=== PATIENT | female | born 1940 | race Hispanic/Latino ===

== ENCOUNTER 2017-11-19 13:12 | Emergency (ER) | payer MEDICARE ==
[2017-11-19 13:19] VITALS: TEMP 97.6
--- NOTE | 2017-11-19 13:33 | C.PDOC ---
History Of Present Illness 77 year old female presents to the ER with a complaint of dizziness since yesterday that she describes as a room spinning sensation. She describes an associated mild nausea and tinnitus in the left ear. Patient reports a Hx of diabetes, states her sugar at home was 182 but did not take any insulin. Denies vomiting, headache, change in vision, chest pain, palpitations, or SOB. Time Seen by Provider: 11/19/17 13:22 Chief Complaint (Nursing): Dizziness/Lightheaded History Per: Patient History/Exam Limitations: no limitations Onset/Duration Of Symptoms: Days Current Symptoms Are (Timing): Still Present Activity At Onset Of Symptoms: Other (Not known) Seizure Or Post-ictal Symptoms: None Fall Associated With With Symptoms: No Recent travel outside of the [place]: No - Symptoms Of CVA Associated Symptoms: denies: Impaired Speech, Seizure Activity, New Vision Deficit(Left), New Vision Deficit(Right), Decreased Ability To Walk, New Confusion Recent Head Trauma: No Past Medical History Reviewed: Historical Data, Nursing Documentation, Vital Signs Vital Signs: Last Vital Signs Temp 97.6 F 11/19/17 13:17 Pulse 69 11/19/17 14:39 Resp 19 11/19/17 14:39 BP 145/47 L 11/19/17 14:39 Pulse Ox 98 11/19/17 14:39 Family History: States: Unknown Family Hx - Social History Hx Alcohol Use: No Hx Substance Use: No Review Of Systems Eyes: Negative for: Vision Change ENT: Positive for: Other (tinnitus) Cardiovascular: Negative for: Chest Pain, Palpitations Respiratory: Negative for: Shortness of Breath Gastrointestinal: Positive for: Nausea. Negative for: Vomiting Neurological: Positive for: Dizziness. Negative for: Headache Physical Exam - Physical Exam Appears: Non-toxic Skin: Normal Color, Warm, Dry Head: Atraumatic, Normacephalic Eye(s): bilateral: Normal Inspection (No nystagmus), PERRL, EOMI Ear(s): Bilateral: Normal (No fluid) Nose: Normal Oral Mucosa: Moist Neck: Normal, Supple Lymphatic: Normal Exam, No Adenopathy Chest: Symmetrical, No Tenderness Cardiovascular: Rhythm Regular Respiratory: Normal Breath Sounds, No Rales, No Rhonchi, No Wheezing Gastrointestinal/Abdominal: Soft, No Tenderness Extremity: Normal ROM (x4) Pulses: Left Carotid: Normal, Right Carotid: Normal Neurological/Psych: Oriented x3, Normal Speech, Normal Cognition, Normal Cranial Nerves, Normal Motor, Normal Sensation, Normal Reflexes ED Course And Treatment - Laboratory Results Result Diagrams: 11/19/17 13:50 11/19/17 13:50 Lab Interpretation: No Acute Changes ECG: Interpreted By Me ECG Rhythm: Sinus Rhythm (with PACs) ECG Interpretation: No Acute Changes O2 Sat by Pulse Oximetry: 97 (Room air) Pulse Ox Interpretation: Normal - CT Scan/US CT head Other Rad Studies (CT/US): Read By Radiologist, Radiology Report Reviewed CT/US Interpretation: Accession No. : [id number]. Patient Name / ID : JEFFERY LAYNE / [id number]. Exam Date : 11/19/2017 14:05:22 ( Approved ). Study Comment : Sex / Age : F / 77Y. Creator : Radha Alan MD. Dictator : Radha Alan MD. Tie Worker : Yarn Twister : Radha Alan MD. Approver2 : Report Date : 11/19/2017 14:19:53. My Comment : . PROCEDURE: CT HEAD WITHOUT CONTRAST. HISTORY: R/O Bleed. COMPARISON: 03/13/2012. TECHNIQUE: Axial computed tomography images were obtained through the head/ brain without intravenous contrast. Radiation dose: Total exam DLP = 940.37 mGy-cm. This CT exam was performed using one or more of the following dose reduction techniques: Automated exposure control, adjustment of the mA and/or kV according to patient size, and/or use of iterative reconstruction technique. FINDINGS: HEMORRHAGE: No intracranial hemorrhage. BRAIN: There are mild chronic microangiopathic changes. There is no mass, mass effect or abnormal extra-axial fluid collection. There are coarse atherosclerotic calcifications in the cavernous carotid arteries. VENTRICLES: There is mild age-related global parenchymal volume loss with proportionate enlargement of the ventricles and cortical sulci. CALVARIUM: There is hyperostosis frontalis interna. Otherwise, the skull base and calvarium are normal. PARANASAL SINUSES: Predominantly clear. MASTOID AIR CELLS: Predominantly clear. OTHER FINDINGS: None. IMPRESSION: No acute intracranial abnormality. Mild chronic microangiopathic changes and mild age-related global parenchymal volume loss. Progress Note: CT head, blood work, EKG, and urinalysis ordered. Patient treated with Meclizine po. Reevaluation Time: 15:20 Reassessment Condition: Improved Disposition Counseled Patient/Family Regarding: Studies Performed, Diagnosis, Need For Followup, Rx Given - Disposition Referrals: [facility] at [facility] [Outside] Disposition: HOME/ ROUTINE Disposition Time: 15:21 Condition: IMPROVED Prescriptions: Meclizine [Meclizine*] 25 mg PO TID PRN #30 tab PRN Reason: Dizziness Instructions: Vertigo (a Type of Dizziness) (DC), Tinnitus (Ringing in the Ears ) Forms: [employer] ([place]) - Clinical Impression Clinical Impression: Vertigo, Tinnitus of left ear - Scribe Statement The provider has reviewed the documentation as recorded by the Scribangie Lawson All medical record entries made by the Soyibangie were at my direction and personally dictated by me. I have reviewed the chart and agree that the record accurately reflects my personal performance of the history, physical exam, medical decision making, and the department course for this patient. I have also personally directed, reviewed, and agree with the discharge instructions and disposition.
[2017-11-19 13:58] LABS: BASO # 0.1 K/uL (0.0-0.2); BASO % 1.6 % (0.0-2.0); EOS # 0.1 K/uL (0.0-0.7); EOS % 2.3 % (0.0-4.0); HEMOGLOBIN 12.4 g/dL (11.0-16.0); LYMPH # 2.1 K/uL (1.0-4.3); LYMPH % 53.7 % (20.0-40.0); MEAN CELL VOLUME 86.1 fL (81.0-99.0); MEAN CORPUSCULAR HEMOGLOBIN 28.8 pg (27.0-31.0); MEAN CORPUSCULAR HGB CONC 33.4 g/dL (33.0-37.0); MEAN PLATELET VOLUME 9.6 fL (7.2-11.7); MONO # 0.2 K/uL (0.0-0.8); MONO % 6.1 % (0.0-10.0); NEUT # 1.4 K/uL (1.8-7.0); NEUT % 36.3 % (50.0-75.0); NRBC % 0.1 % (0.0-2.0); RBC 4.31 Mil/uL (3.80-5.20); RED CELL DISTRIBUTION WIDTH 13.9 % (11.5-14.5)
[2017-11-19 14:18] LABS: ALB/GLOB RATIO 1.1 (1.0-2.1); ALT/SGPT 24 U/L (9-52); AST/SGOT 23 U/L (14-36); BLOOD UREA NITROGEN 10 mg/dL (7-17); CALCIUM 8.9 mg/dl (8.6-10.4); GFR AFRICAN-AMERICAN > 60; GFR NON-AFRICAN AMERICAN > 60
--- NOTE | 2017-11-19 14:21 | CT ---
PROCEDURE: CT HEAD WITHOUT CONTRAST. HISTORY: R/O Bleed COMPARISON: 03/13/2012. TECHNIQUE: Axial computed tomography images were obtained through the head/brain without intravenous contrast. Radiation dose: Total exam DLP = 940.37 mGy-cm. This CT exam was performed using one or more of the following dose reduction techniques: Automated exposure control, adjustment of the mA and/or kV according to patient size, and/or use of iterative reconstruction technique. FINDINGS: HEMORRHAGE: No intracranial hemorrhage. BRAIN: There are mild chronic microangiopathic changes. There is no mass, mass effect or abnormal extra-axial fluid collection. There are coarse atherosclerotic calcifications in the cavernous carotid arteries. VENTRICLES: There is mild age-related global parenchymal volume loss with proportionate enlargement of the ventricles and cortical sulci. CALVARIUM: There is hyperostosis frontalis interna. Otherwise, the skull base and calvarium are normal. PARANASAL SINUSES: Predominantly clear. MASTOID AIR CELLS: Predominantly clear. OTHER FINDINGS: None. IMPRESSION: No acute intracranial abnormality. Mild chronic microangiopathic changes and mild age-related global parenchymal volume loss.
[2017-11-19 14:55] LABS: SQUAMOUS EPITHIAL 4 /hpf (0-5); URINE BACTERIA OCC (<OCC); URINE BILIRUBIN NEGATIVE (NEGATIVE); URINE BLOOD NEGATIVE (NEGATIVE); URINE CLARITY Hazy (Clear); URINE COLOR Straw (YELLOW); URINE GLUCOSE (UA) NORMAL (Normal); URINE LEUKOCYTE ESTERASE TRACE Leu/uL (Negative); URINE PROTEIN NEGATIVE (NEGATIVE); URINE UROBILINOGEN NORMAL mg/dL (0.2-1.0)
[2017-11-19 14:58] VITALS: BP 145/47; PULSE 69; RESP 19
[2017-11-19 15:23] VITALS: O2SAT 97
--- NOTE | 2017-11-21 13:04 | CARD ---
APPROVED REPORT EKG Measurement Heart [id number] OR [id number] <Conclusion> Sinus rhythm with premature atrial complexes Otherwise normal ECG
== END 2017-11-19 15:41 | disposition home or self-care (01) ==
LOC: C.ER 13:12
DX: R42 Dizziness and giddiness (principal); H93.12 Tinnitus, left ear

== ENCOUNTER 2018-09-26 11:43 | Emergency (ER) | payer MEDICARE ==
[2018-09-26 11:49] VITALS: BMI 36.1
[2018-09-26 11:53] VITALS: BP 126/76; PULSE 88; RESP 18; TEMP 98.1; O2SAT 97
[2018-09-26] MEDS ORDERED: Lidocaine 2% Jelly (Uro-Jet) TOP ONE (12:40)
[2018-09-26] MEDS ORDERED: Lidocaine 2% Jelly (Uro-Jet) ONE (13:24)
--- NOTE | 2018-09-26 14:07 | C.PDOC ---
History Of Present Illness 78 year old female, whose past medical history includes diabetes (occasionally compliant with insulin), presents to the ED for evaluation of a redness and burning sensation to her bilateral inguinal areas which began a few days ago. Patient tried applying a cream that was prescribed by her dematologist in the past to the area, without relief. She denies fever, chills, discharge from the area, recent contact with chemicals. Time Seen by Provider: 09/26/18 12:09 Chief Complaint (Nursing): Abnormal Skin Integrity History Per: Patient History/Exam Limitations: no limitations Onset/Duration Of Symptoms: Days Current Symptoms Are (Timing): Still Present Quality Of Symptoms: Other (burning ) Additional History Per: Patient Past Medical History Reviewed: Historical Data, Nursing Documentation, Vital Signs Vital Signs: Last Vital Signs Temp 98.1 F 09/26/18 11:48 Pulse 88 09/26/18 11:48 Resp 18 09/26/18 11:48 BP 126/76 09/26/18 11:48 Pulse Ox 97 09/26/18 11:48 - Medical History PMH: No Chronic Diseases Surgical History: Cholecystectomy Family History: States: Unknown Family Hx - Social History Hx Alcohol Use: No Hx Substance Use: No Review Of Systems Constitutional: Negative for: Fever, Chills Skin: Positive for: Other (erythema and burning to bilateral inguinal regions. no drainage ) Physical Exam - Physical Exam Appears: Non-toxic, No Acute Distress Skin: Warm, Dry, Other (erythematous rash with scaling and skin slothing to bilateral inguinal regions ) Head: Atraumatic, Normacephalic Eye(s): bilateral: Normal Inspection Oral Mucosa: Moist Neck: Normal ROM, Supple Chest: Symmetrical, No Deformity, No Tenderness Cardiovascular: Rhythm Regular, No Murmur Respiratory: Normal Breath Sounds, No Rales, No Rhonchi, No Wheezing Gastrointestinal/Abdominal: Soft, No Tenderness Back: Normal Inspection, No CVA Tenderness Extremity: Normal ROM, Capillary Refill (less than 2 seconds), No Swelling Pulses: Left Dorsalis Pedis: Normal, Right Dorsalis Pedis: Normal Neurological/Psych: Oriented x3, Normal Speech, Normal Cognition, Normal Motor, Normal Sensation Gait: Steady ED Course And Treatment O2 Sat by Pulse Oximetry: 97 (on RA ) Pulse Ox Interpretation: Normal Medical Decision Making Medical Decision Making: Progress: finger stick blood glucose ordered. Lidocaine TOP applied. Disposition - Disposition Referrals: [facility] at [facility] [Outside] Disposition: HOME/ ROUTINE Disposition Time: 14:01 Condition: FAIR Additional Instructions: You must control your sugar better for the rash to improve. Follow up with the medical doctor within 1-2 days. Return if worsened. Prescriptions: Nystatin [Mycostatin Oint] 1 applic TOP TID #3 tube Instructions: Yeast Infection (DC) Forms: [employer] (Japanese) - Clinical Impression Clinical Impression: Intertriginous candidiasis - PA / VIDEO SYSTEMS ENGINEER / Resident Statement MD/DO has reviewed & agrees with the documentation as recorded. - Scribe Statement The provider has reviewed the documentation as recorded by the Scribe (Evelyn Hauser) All medical record entries made by the Scribe were at my direction and personally dictated by me. I have reviewed the chart and agree that the record accurately reflects my personal performance of the history, physical exam, medical decision making, and the department course for this patient. I have also personally directed, reviewed, and agree with the discharge instructions and disposition.
== END 2018-09-26 14:25 | disposition home or self-care (01) ==
LOC: C.ER 11:43
DX: B37.2 Candidiasis of skin and nail (principal)